=== PATIENT | female | born 1995 | race Two or more races ===

== ENCOUNTER 2016-09-20 06:47 | Emergency (ER) | payer OTHER ==
[2016-09-20] MEDS ORDERED: ONDANSETRON 4 MG ORAL DISINTEGRATING TAB (S0181) As Ordered ONE (07:09)
[2016-09-20] MEDS ORDERED: ALBUTEROL SULFATE 2.5 MG/0.5 ML INH NEB SOLN As Ordered ONE (07:56)
--- NOTE | 2016-09-20 08:20 | EDDOCDS ---
Nurse's Notes [facility] Name: She Solo Age: 20 yrs Sex: Female : 1995 Arrival Date: 09/20/2016 Time: 06:47 Bed I5 / M5 Private MD: Diagnosis: Chest pain, unspecified Presentation: 09/20 06:57 Presenting complaint: Patient states: having chest aches, nausea for 1 week. Reports kr3 last time felt like this had a seizure. Reports fell asleep with symptoms and woke this AM with symptoms. Reports did not follow up with PCP 'because they just wanted to start all kinds of meds'. Aspirin was not taken prior to arrival. Adult Sepsis Screening: The patient does not have new or worsening altered mentation. Patient's respiratory rate is less than 22. Systolic blood pressure is greater than 100. Patient has a qSOFA score of 0- Negative Sepsis Screen. Suicide/Homicide risk assessment- the patient denies having any suicidal and/or homicidal ideations and does not present with any other emotional, behavioral or mental health complaints. 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 Transition of care: patient was not received from another setting of care. 06:57 Acuity: MARIBEL Level 3 kr3 06:57 Method Of Arrival: Walkin/Carried/Asstd kr3 Triage Assessment: 06:59 General: Appears in no apparent distress, comfortable, Behavior is cooperative. kr3 General: reports nasty feeling inside . Pain: Denies pain. HIV screening NA for this visit Offered previously. EENT: Reports sneezing. Cardiovascular: Chest pain is described as Pain is 0 out of 10 on a pain scale. radiates Does not radiate. episodes are intermittent began over 1 week ago. Respiratory: Respiratory effort is even, unlabored. GI: Reports nausea. Derm: Skin is pink, warm & dry. 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 red colored inhaler - PMHx: Asthma; - PSHx: none; - Social history: Smoking status: Patient states was never smoker of tobacco. No barriers to communication noted, The patient speaks fluent Portuguese, Speaks appropriately for age. - Family history: Not pertinent. - : The pt / caregiver states he / she is not on anticoagulants. Home medication list is obtained from the patient. - Exposure Risk Screening:: None identified. Screenin:06 Screening information is obtained from the patient. Fall risk: No risks identified. kr3 Assistance ADL's: requires no assistance with activities of daily living. Abuse/DV Screen: The patient / caregiver reports he/she is: not in a situation that causes fear, pain or injury. Nutritional screening: No deficits noted. Advance Directives: Currently, there is no health care proxy. home support is adequate. Assessment: 07:17 Reassessment: Patient appears in no apparent distress at this time. Patient denies pain kr3 at this time. Neurological: Level of Consciousness is awake, alert, Gait is steady, Speech is normal. Cardiovascular: Rhythm is not on monitor. Respiratory: Respiratory effort is even, unlabored. GI: Reports nausea. Derm: Skin is pink, warm & dry. 08:09 Reassessment: Patient states feeling better. receiving breathing treatment. kr3 Vital Signs: 06:59 BP 130 / 76; Pulse 65; Resp 16; Temp 97.7(O); Pulse Ox 98% on R/A; Weight 83.91 kg (R); kr3 Height 5 ft. 10 in. (177.80 cm) (R); 08:17 BP 120 / 69; Pulse 76; Resp 16; Temp 97.6(O); Pulse Ox 99% on R/A; Pain 0/10; kr3 06:59 Body Mass Index 26.54 (83.91 kg, 177.80 cm) kr3 Vitals: 06:59 Log In Time: September 20, 2016 at 06:43. kr3 ED Course: 06:48 Patient visited by Olena Cordero, Reg. hs2 06:48 Patient moved to Waiting hs2 06:59 Triage Initiated kr3 07:03 Patient moved to I5 / M5 kr3 07:04 César Cano PA-C is PHCP. cc10 07:04 Sravan Haji MD is Attending Physician. cc10 07:04 Patient visited by César Cano PA-C. cc10 07:04 Patient visited by César Cano PA-C. cc10 07:06 The patient / caregiver is instructed regarding the plan of care and ED course. kr3 Accompanied by Friend, Patient has correct armband on for positive identification. Placed in gown. Bed in low position. Call light in reach. Side rails up X 1. Cardiac monitoring not applicable on this patient. 07:14 No IV's were initiated during this patient's visit. No procedures done that require kr3 assistance. 08:09 Patient visited by Aline Urrutia RN. kr3 08:11 Juarez Elkins [facility] is Referral Physician. cc10 Administered Medications: 07:14 Drug: Ondansetron ODT 4 mg [ondansetron 4 mg disintegrating tablet (1 tabs)] Route: PO; kr3 08:09 Follow up: Response: Nausea is decreased kr3 08:01 Drug: Albuterol 2.5 mg [albuterol sulfate 2.5 mg/0.5 mL solution for nebulization (0.5 cs15 mL)] Route: Nebulizer; Point of Care Testing: Urine : 07:14 hCG Reading: Negative; Control Reading: Positive; kr3 Ranges: RT: 08:01 Initial Med Neb Given as ordered. Respiratory: Respiratory effort is even, unlabored, cs15 Respiratory pattern is regular Breath sounds are diminished bilaterally. Order Results: There are currently no results for this order. Outcome: 07:14 No special radiology studies were completed. kr3 08:11 Discharge ordered by Provider. cc10 08:18 Discharge Assessment: patient administered narcotics - no. The following High Risk kr3 Discharge criteria are identified: None. Discharged to home ambulatory. Condition: stable. Discharge instructions given to patient, Instructed on discharge instructions, follow up and referral plans. medication usage, Demonstrated understanding of instructions, medications, Pt was receptive of discharge instructions/ teaching. Prescriptions given X 1. Property sent home with patient. 08:18 Patient left the ED. kr3 Signatures: Aline Urrutia RN RN kr3 César Cano, PA-C PA-C cc10 Dallas Bailey,RT RT cs15 Olena Cordero, Reg Reg hs2 Corrections: (The following items were deleted from the chart) 07:03 06:57 Presenting complaint: Patient states: having chest aches, nausea for 1 week. kr3 Reports last time felt like this had a seizure. Reports fell asleep with symptoms and woke this AM with symptoms kr3 MTDD
--- NOTE | 2016-09-20 08:20 | EDDOCDS ---
Physician Documentation [facility] Name: She Solo Age: 20 yrs Sex: Female : 1995 Arrival Date: 09/20/2016 Time: 06:47 Bed I5 / M5 Private MD: Disposition: 09/20/16 08:11 Discharged to Home/Self Care. Impression: Chest pain, unspecified. - Condition is Stable. - Discharge Instructions: Nonspecific Chest Pain. - Prescriptions for Naprosyn 500 mg Oral Tablet - take 1 tablet by ORAL route 2 times per day take with food; 30 tablet. - Medication Reconciliation form. - Follow up: Juarez Elkins [facility]; When: Tomorrow; Reason: Wound/Symptom Recheck, Recheck today's complaints, Worsening of conditions, Continuance of care. - Problem is an ongoing problem. - Symptoms are unchanged. Historical: - Allergies: no known allergies; - Home Meds: 1. red colored inhaler - PMHx: Asthma; - PSHx: none; - Social history: Smoking status: Patient states was never smoker of tobacco. No barriers to communication noted, The patient speaks fluent Argentine, Speaks appropriately for age. - Family history: Not pertinent. - : The pt / caregiver states he / she is not on anticoagulants. Home medication list is obtained from the patient. - Exposure Risk Screening:: None identified. 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 10 in. (177.80 cm) (R); 08:17 BP 120 / 69; Pulse 76; Resp 16; Temp 97.6(O); Pulse Ox 99% on R/A; Pain 0/10; kr3 06:59 Body Mass Index 26.54 (83.91 kg, 177.80 cm) kr3 MDM: 07:07 Albuterol 2.5 mg Nebulizer once ordered. cc10 07:07 Call Respiratory ordered. cc10 07:07 Ondansetron ODT Oral Disintegrating Tablet 4 mg PO once ordered. cc10 07:07 UCG by Nursing ordered. cc10 07:09 Call Respiratory complete. kr3 Point of Care Testing: Urine : 07:14 hCG Reading: Negative; Control Reading: Positive; kr3 Ranges: Administered Medications: 07:14 Drug: Ondansetron ODT 4 mg [ondansetron 4 mg disintegrating tablet (1 tabs)] Route: PO; kr3 08:09 Follow up: Response: Nausea is decreased kr3 08:01 Drug: Albuterol 2.5 mg [albuterol sulfate 2.5 mg/0.5 mL solution for nebulization (0.5 cs15 mL)] Route: Nebulizer; Signatures: Aline Urrutia,RN RN kr3 César Cano PA-C PA-C cc10 Dallas Bailey RT cs15 MTDD
--- NOTE | 2016-09-22 09:19 | EDDOCDS ---
Nurse's Notes [facility] Name: She Solo Age: 20 yrs Sex: Female : 1995 Arrival Date: 09/20/2016 Time: 06:47 Bed I5 / M5 Private MD: Diagnosis: Chest pain, unspecified Presentation: 09/20 06:57 Presenting complaint: Patient states: having chest aches, nausea for 1 week. Reports kr3 last time felt like this had a seizure. Reports fell asleep with symptoms and woke this AM with symptoms. Reports did not follow up with PCP 'because they just wanted to start all kinds of meds'. Aspirin was not taken prior to arrival. Adult Sepsis Screening: The patient does not have new or worsening altered mentation. Patient's respiratory rate is less than 22. Systolic blood pressure is greater than 100. Patient has a qSOFA score of 0- Negative Sepsis Screen. Suicide/Homicide risk assessment- the patient denies having any suicidal and/or homicidal ideations and does not present with any other emotional, behavioral or mental health complaints. 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 Transition of care: patient was not received from another setting of care. 06:57 Acuity: MARIBEL Level 3 kr3 06:57 Method Of Arrival: Walkin/Carried/Asstd kr3 Triage Assessment: 06:59 General: Appears in no apparent distress, comfortable, Behavior is cooperative. kr3 General: reports nasty feeling inside . Pain: Denies pain. HIV screening NA for this visit Offered previously. EENT: Reports sneezing. Cardiovascular: Chest pain is described as Pain is 0 out of 10 on a pain scale. radiates Does not radiate. episodes are intermittent began over 1 week ago. Respiratory: Respiratory effort is even, unlabored. GI: Reports nausea. Derm: Skin is pink, warm & dry. 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 red colored inhaler - PMHx: Asthma; - PSHx: none; - Social history: Smoking status: Patient states was never smoker of tobacco. No barriers to communication noted, The patient speaks fluent Upper Sorbian, Speaks appropriately for age. - Family history: Not pertinent. - : The pt / caregiver states he / she is not on anticoagulants. Home medication list is obtained from the patient. - Exposure Risk Screening:: None identified. Screenin:06 Screening information is obtained from the patient. Fall risk: No risks identified. kr3 Assistance ADL's: requires no assistance with activities of daily living. Abuse/DV Screen: The patient / caregiver reports he/she is: not in a situation that causes fear, pain or injury. Nutritional screening: No deficits noted. Advance Directives: Currently, there is no health care proxy. home support is adequate. Assessment: 07:17 Reassessment: Patient appears in no apparent distress at this time. Patient denies pain kr3 at this time. Neurological: Level of Consciousness is awake, alert, Gait is steady, Speech is normal. Cardiovascular: Rhythm is not on monitor. Respiratory: Respiratory effort is even, unlabored. GI: Reports nausea. Derm: Skin is pink, warm & dry. 08:09 Reassessment: Patient states feeling better. receiving breathing treatment. kr3 Vital Signs: 06:59 BP 130 / 76; Pulse 65; Resp 16; Temp 97.7(O); Pulse Ox 98% on R/A; Weight 83.91 kg (R); kr3 Height 5 ft. 10 in. (177.80 cm) (R); 08:17 BP 120 / 69; Pulse 76; Resp 16; Temp 97.6(O); Pulse Ox 99% on R/A; Pain 0/10; kr3 06:59 Body Mass Index 26.54 (83.91 kg, 177.80 cm) kr3 Vitals: 06:59 Log In Time: September 20, 2016 at 06:43. kr3 ED Course: 06:48 Patient visited by Olena Cordero, Reg. hs2 06:48 Patient moved to Waiting hs2 06:59 Triage Initiated kr3 07:03 Patient moved to I5 / M5 kr3 07:04 César Cano PA-C is PHCP. cc10 07:04 Sravan Haji MD is Attending Physician. cc10 07:04 Patient visited by César Cano PA-C. cc10 07:04 Patient visited by César Cano PA-C. cc10 07:06 The patient / caregiver is instructed regarding the plan of care and ED course. kr3 Accompanied by Friend, Patient has correct armband on for positive identification. Placed in gown. Bed in low position. Call light in reach. Side rails up X 1. Cardiac monitoring not applicable on this patient. 07:14 No IV's were initiated during this patient's visit. No procedures done that require kr3 assistance. 08:09 Patient visited by Aline Urrutia RN. kr3 08:11 [facility]. cc10 09:22 [facility] Payment Agreement was scanned into [employer] and attached to record. lg 13:51 T-Sheet-- Draft Copy was scanned into [employer] and attached to record. gb Administered Medications: 07:14 Drug: Ondansetron ODT 4 mg [ondansetron 4 mg disintegrating tablet (1 tabs)] Route: PO; kr3 08:09 Follow up: Response: Nausea is decreased kr3 08:01 Drug: Albuterol 2.5 mg [albuterol sulfate 2.5 mg/0.5 mL solution for nebulization (0.5 cs15 mL)] Route: Nebulizer; Point of Care Testing: Urine : 07:14 hCG Reading: Negative; Control Reading: Positive; kr3 Ranges: RT: 08:01 Initial Med Neb Given as ordered. Respiratory: Respiratory effort is even, unlabored, cs15 Respiratory pattern is regular Breath sounds are diminished bilaterally. Order Results: There are currently no results for this order. Outcome: 07:14 No special radiology studies were completed. kr3 08:11 Discharge ordered by Provider. cc10 08:18 Discharge Assessment: patient administered narcotics - no. The following High Risk kr3 Discharge criteria are identified: None. Discharged to home ambulatory. Condition: stable. Discharge instructions given to patient, Instructed on discharge instructions, follow up and referral plans. medication usage, Demonstrated understanding of instructions, medications, Pt was receptive of discharge instructions/ teaching. Prescriptions given X 1. Property sent home with patient. 08:18 Patient left the ED. kr3 Signatures: nEid Blair, Reg Reg gb Basil Jackson, Reg Reg lg Aline Urrutia RN RN kr3 César Cano, PA-C PA-C cc10 Dallas Bailey,RT RT cs15 Olena Cordero, Reg Reg hs2 Corrections: (The following items were deleted from the chart) 07:03 06:57 Presenting complaint: Patient states: having chest aches, nausea for 1 week. kr3 Reports last time felt like this had a seizure. Reports fell asleep with symptoms and woke this AM with symptoms kr3 Chart Complete MTDD
--- NOTE | 2016-09-22 09:19 | EDDOCDS ---
Physician Documentation [facility] Name: She Solo Age: 20 yrs Sex: Female : 1995 Arrival Date: 09/20/2016 Time: 06:47 Bed I5 / M5 Private MD: Disposition: 09/20/16 08:11 Discharged to Home/Self Care. Impression: Chest pain, unspecified. - Condition is Stable. - Discharge Instructions: Nonspecific Chest Pain. - Prescriptions for Naprosyn 500 mg Oral Tablet - take 1 tablet by ORAL route 2 times per day take with food; 30 tablet. - Medication Reconciliation form. - Follow up: Juarez Elkins [facility]; When: Tomorrow; Reason: Wound/Symptom Recheck, Recheck today's complaints, Worsening of conditions, Continuance of care. - Problem is an ongoing problem. - Symptoms are unchanged. Historical: - Allergies: no known allergies; - Home Meds: 1. red colored inhaler - PMHx: Asthma; - PSHx: none; - Social history: Smoking status: Patient states was never smoker of tobacco. No barriers to communication noted, The patient speaks fluent Cambodian, Speaks appropriately for age. - Family history: Not pertinent. - : The pt / caregiver states he / she is not on anticoagulants. Home medication list is obtained from the patient. - Exposure Risk Screening:: None identified. 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 10 in. (177.80 cm) (R); 08:17 BP 120 / 69; Pulse 76; Resp 16; Temp 97.6(O); Pulse Ox 99% on R/A; Pain 0/10; kr3 06:59 Body Mass Index 26.54 (83.91 kg, 177.80 cm) kr3 MDM: 07:07 Albuterol 2.5 mg Nebulizer once ordered. cc10 07:07 Call Respiratory ordered. cc10 07:07 Ondansetron ODT Oral Disintegrating Tablet 4 mg PO once ordered. cc10 07:07 UCG by Nursing ordered. cc10 07:09 Call Respiratory complete. kr3 09:22 [facility] Payment Agreement was scanned into [employer] and attached to record. lg 13:51 T-Sheet-- Draft Copy was scanned into [employer] and attached to record. gb Point of Care Testing: Urine : 07:14 hCG Reading: Negative; Control Reading: Positive; kr3 Ranges: Administered Medications: 07:14 Drug: Ondansetron ODT 4 mg [ondansetron 4 mg disintegrating tablet (1 tabs)] Route: PO; kr3 08:09 Follow up: Response: Nausea is decreased kr3 08:01 Drug: Albuterol 2.5 mg [albuterol sulfate 2.5 mg/0.5 mL solution for nebulization (0.5 cs15 mL)] Route: Nebulizer; Signatures: Enid Blair, Reg Reg gb Basil Jackson, Reg Reg lg Aline Urrutia,GUSTAVO RN kr3 César Cano, PAGaylaC PA-C cc10 Dallas Bailey RT cs15 The chart was reviewed and I authenticate all verbal orders and agree with the evaluation and treatment provided.Attachments: 09:22 [facility] Payment Agreement lg 13:51 T-Sheet-- Draft Copy gb Chart Complete MTDD
--- NOTE | 2016-09-22 09:19 | EDDOCDS ---
[facility]ation [facility] Name: She Solo Age: 20 yrs Sex: Female : 1995 Arrival Date: 09/20/2016 Time: 06:47 Bed I5 / M5 Private MD: Disposition: 09/20/16 08:11 Discharged to Home/Self Care. Impression: Chest pain, unspecified. - Condition is Stable. - Discharge Instructions: Nonspecific Chest Pain. - Prescriptions for Naprosyn 500 mg Oral Tablet - take 1 tablet by ORAL route 2 times per day take with food; 30 tablet. - Medication Reconciliation form. - Follow up: Juarez Elkins [facility]; When: Tomorrow; Reason: Wound/Symptom Recheck, Recheck today's complaints, Worsening of conditions, Continuance of care. - Problem is an ongoing problem. - Symptoms are unchanged. Historical: - Allergies: no known allergies; - Home Meds: 1. red colored inhaler - PMHx: Asthma; - PSHx: none; - Social history: Smoking status: Patient states was never smoker of tobacco. No barriers to communication noted, The patient speaks fluent Turkish, Speaks appropriately for age. - Family history: Not pertinent. - : The pt / caregiver states he / she is not on anticoagulants. Home medication list is obtained from the patient. - Exposure Risk Screening:: None identified. 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 10 in. (177.80 cm) (R); 08:17 BP 120 / 69; Pulse 76; Resp 16; Temp 97.6(O); Pulse Ox 99% on R/A; Pain 0/10; kr3 06:59 Body Mass Index 26.54 (83.91 kg, 177.80 cm) kr3 MDM: 07:07 Albuterol 2.5 mg Nebulizer once ordered. cc10 07:07 Call Respiratory ordered. cc10 07:07 Ondansetron ODT Oral Disintegrating Tablet 4 mg PO once ordered. cc10 07:07 UCG by Nursing ordered. cc10 07:09 Call Respiratory complete. kr3 09:22 [facility] Payment Agreement was scanned into [employer] and attached to record. lg 13:51 T-Sheet-- Draft Copy was scanned into [employer] and attached to record. gb Point of Care Testing: Urine : 07:14 hCG Reading: Negative; Control Reading: Positive; kr3 Ranges: Administered Medications: 07:14 Drug: Ondansetron ODT 4 mg [ondansetron 4 mg disintegrating tablet (1 tabs)] Route: PO; kr3 08:09 Follow up: Response: Nausea is decreased kr3 08:01 Drug: Albuterol 2.5 mg [albuterol sulfate 2.5 mg/0.5 mL solution for nebulization (0.5 cs15 mL)] Route: Nebulizer; Signatures: Enid Blair, Reg Reg gb Basil Jackson, Reg Reg lg Aline Urrutia,GUSTAVO RN kr3 César Cano, PAGaylaC PA-C cc10 Dallas Bailey RT cs15 The chart was reviewed and I authenticate all verbal orders and agree with the evaluation and treatment provided.Attachments: 09:22 [facility] Payment Agreement lg 13:51 T-Sheet-- Draft Copy gb Chart Complete MTDD
== END 2016-09-20 08:18 | disposition home or self-care (01) ==
LOC: M ED 06:47
DX: R07.89 Other chest pain (principal); J45.909 Unspecified asthma, uncomplicated; R11.0 Nausea

== ENCOUNTER 2016-11-20 17:50 | Emergency (ER) | payer OTHER ==
[~2016-11-20] VITALS: Ht 177.8 cm; Wt 88.0 kg
[2016-11-20 18:37] LABS: MEAN CORPUSCULAR HEMOGLOBIN 28.4 pg (27.0-33.0); MEAN CORPUSCULAR HGB CONC 33.3 g/dl (32.0-36.5); MEAN CORPUSCULAR VOLUME 85.2 fl (80.0-96.0); WHITE BLOOD COUNT 6.5 K/mm3 (4.0-10.0)
[2016-11-20 18:56] LABS: CONTROL LINE HCG INT CTR LINE PRESENT
[2016-11-20 19:02] LABS: METHADONE URINE NEGATIVE (NEGATIVE)
[2016-11-20 19:11] LABS: ALBUMIN 4.1 GM/DL (3.2-5.2); ALBUMIN/GLOBULIN RATIO 1.28 (1.00-1.93); ALKALINE PHOSPHATASE 81 U/L (45-117); ALT/SGPT 20 U/L (12-78); ANION GAP 10 MEQ/L (8-16); AST/SGOT 21 U/L (15-37); BILIRUBIN,DIRECT < 0.1 MG/DL (0.0-0.2); BILIRUBIN,TOTAL 0.3 MG/DL (0.2-1.0); BLOOD UREA NITROGEN 11 MG/DL (7-18); CALCIUM LEVEL 8.4 MG/DL (8.5-10.1); CARBON DIOXIDE LEVEL 24 MEQ/L (21-32); CHLORIDE LEVEL 107 MEQ/L (98-107); CREATININE FOR GFR 0.77 MG/DL (0.55-1.02); GLUCOSE, FASTING 112 MG/DL (70-105); POTASSIUM SERUM 3.3 MEQ/L (3.5-5.1); SODIUM LEVEL 141 MEQ/L (136-145); TOTAL PROTEIN 7.3 GM/DL (6.4-8.2)
[2016-11-20] MEDS ORDERED: CITA20TA4 PO (19:19)
[2016-11-20 19:58] VITALS: BP 135/86
== END 2016-11-20 20:00 | disposition home or self-care (01) ==
LOC: M ED 19:01
DX: F32.9 Major depressive disorder, single episode, unspecified (principal); Z03.6 Encounter for observation for suspected toxic effect from ingested substance ruled out; Z79.899 Other long term (current) drug therapy
CPT/HCPCS: 36415; 80048; 80076; 80306; 84443; 84703; 85027; 99285; G0480

== ENCOUNTER 2017-03-01 08:50 | Emergency (ER) | payer OTHER ==
[~2017-03-01] VITALS: Ht 175.3 cm; Wt 93.0 kg
[~2017-03-01 08:50] MED LIST: CITA20TA4 PO
[2017-03-01 08:51] VITALS: BP 138/87
[2017-03-01] MEDS ORDERED: ZONI100C2 PO (09:07)
[2017-03-01] MEDS ORDERED: ONDANSETRON 4 MG ORAL DISINTEGRATING TAB (S0181) PO ONE (10:00)
[2017-03-01] MEDS ORDERED: ZOFR4TAB3 PO (10:06)
== END 2017-03-01 10:15 | disposition home or self-care (01) ==
LOC: M ED 09:49
DX: T43.225A Adverse effect of selective serotonin reuptake inhibitors, initial encounter (principal); R19.7 Diarrhea, unspecified; X58.XXXA Exposure to other specified factors, initial encounter; Y92.9 Unspecified place or not applicable; Y93.9 Activity, unspecified; Y99.9 Unspecified external cause status; F41.9 Anxiety disorder, unspecified; F44.5 Conversion disorder with seizures or convulsions; Z79.899 Other long term (current) drug therapy

== ENCOUNTER 2017-06-09 21:22 | Emergency (ER) | payer OTHER ==
[~2017-06-09] VITALS: Ht 175.3 cm; Wt 91.8 kg
[~2017-06-09 21:22] MED LIST changes: +MICONAZOLE-7 VAGINAL 2% CREAM 47.7 GM PV SCH; +ZOFR4TAB3 PO; +ZONI100C2 PO
[2017-06-09] MEDS ORDERED: PROAAER10 (21:43)
[2017-06-09 23:18] LABS: CONTROL LINE UCG INT CTR LINE PRESENT
[2017-06-09 23:27] LABS: YEAST LIKE CELL URINE AUTO SMALL
[2017-06-09] MEDS ORDERED: DIFL150T PO (23:45)
[2017-06-09] MEDS ORDERED: MICO1SUP2 PV (23:48)
[2017-06-09 23:51] VITALS: BP 146/76
[2017-06-10] MEDS ORDERED: MACR100C43 PO (01:25)
== END 2017-06-10 00:10 | disposition home or self-care (01) ==
LOC: M ED 21:22
DX: N76.0 Acute vaginitis (principal); Z87.42 Personal history of other diseases of the female genital tract

== ENCOUNTER → 2017-07-05 | Outpatient (REF) | payer OTHER ==
[~2017-07-05] MED LIST changes: +DIFL150T PO; +MACR100C43 PO; +MICO1SUP2 PV; -MICONAZOLE-7 VAGINAL 2% CREAM 47.7 GM PV SCH; +PROAAER10
[2017-07-05 13:40] LABS: BASO # 0.1 10^3/uL (0.0-0.2); EOS # 0.5 10^3/uL (0.0-0.50); IMMATURE GRANULOCYTE % 0.2 % (0-0); LYMPH % 32.8 % (24.0-44.0); MEAN CORPUSCULAR HEMOGLOBIN 27.5 pg (27.0-33.0); MEAN CORPUSCULAR HGB CONC 31.8 g/dl (32.0-36.5); MEAN CORPUSCULAR VOLUME 86.6 fl (80.0-96.0); MONO # 0.4 10^3/uL (0.0-0.8); MONO % 7.1 % (0.0-5.0); NEUTROPHILS # 3.1 10^3/uL (1.8-7.7); NEUTROPHILS % 50.9 % (36.0-66.0); PLATELET COUNT, AUTOMATED 274 10^3/uL (150-450); RED CELL DISTRIBUTION WIDTH 13.5 % (11.5-14.5); WHITE BLOOD COUNT 6.2 10^3/uL (4.0-10.0)
[2017-07-05 13:43] LABS: ALBUMIN 3.8 GM/DL (3.2-5.2); ALBUMIN/GLOBULIN RATIO 1.31 (1.00-1.93); ALKALINE PHOSPHATASE 87 U/L (45-117); ALT/SGPT 24 U/L (12-78); ANION GAP 8 MEQ/L (8-16); AST/SGOT 13 U/L (15-37); BILIRUBIN,TOTAL 0.3 MG/DL (0.2-1.0); BLOOD UREA NITROGEN 9 MG/DL (7-18); CALCIUM LEVEL 8.9 MG/DL (8.5-10.1); CARBON DIOXIDE LEVEL 25 MEQ/L (21-32); CHLORIDE LEVEL 108 MEQ/L (98-107); CREATININE FOR GFR 0.67 MG/DL (0.55-1.02); GLUCOSE, FASTING 85 MG/DL (70-105); POTASSIUM SERUM 3.7 MEQ/L (3.5-5.1); SODIUM LEVEL 141 MEQ/L (136-145); TOTAL PROTEIN 6.7 GM/DL (6.4-8.2)
== END ==
LOC: M LABNEURO 09:27
PROVIDERS: ATTEND Psychiatry & Neurology Neurology
DX: R56.9 Unspecified convulsions (principal)

== ENCOUNTER → 2017-09-13 | Outpatient (REF) | payer OTHER ==
[2017-09-13 13:17] LABS: ALBUMIN/GLOBULIN RATIO 1.18 (1.00-1.93); ALKALINE PHOSPHATASE 90 U/L (45-117); ALT/SGPT 22 U/L (12-78); ANION GAP 8 MEQ/L (8-16); AST/SGOT 17 U/L (7-37); BILIRUBIN,TOTAL 0.4 MG/DL (0.2-1.0); BLOOD UREA NITROGEN 14 MG/DL (7-18); CALCIUM LEVEL 8.9 MG/DL (8.5-10.1); CARBON DIOXIDE LEVEL 24 MEQ/L (21-32); CHLORIDE LEVEL 107 MEQ/L (98-107); GLUCOSE, FASTING 107 MG/DL (70-105); POTASSIUM SERUM 3.7 MEQ/L (3.5-5.1); SODIUM LEVEL 139 MEQ/L (136-145); TOTAL PROTEIN 7.4 GM/DL (6.4-8.2)
[2017-09-13 13:21] LABS: BASO # 0.1 10^3/uL (0.0-0.2); BASO % 1.3 % (0.0-1.0); EOS # 0.2 10^3/uL (0.0-0.50); EOS % 5.4 % (0.0-3.0); HEMATOCRIT 41.5 % (36.0-47.0); HEMOGLOBIN 13.2 g/dl (12.0-16.0); IMMATURE GRANULOCYTE % 0.3 % (0-0); LYMPH # 1.5 10^3/uL (1.5-6.5); LYMPH % 37.2 % (24.0-44.0); MEAN CORPUSCULAR HEMOGLOBIN 26.8 pg (27.0-33.0); MEAN CORPUSCULAR HGB CONC 31.8 g/dl (32.0-36.5); MEAN CORPUSCULAR VOLUME 84.3 fl (80.0-96.0); MONO # 0.4 10^3/uL (0.0-0.8); MONO % 9.7 % (0.0-5.0); NEUTROPHILS # 1.8 10^3/uL (1.8-7.7); NEUTROPHILS % 46.1 % (36.0-66.0); PLATELET COUNT, AUTOMATED 329 10^3/uL (150-450); RED BLOOD COUNT 4.92 10^6/uL (4.00-5.40); RED CELL DISTRIBUTION WIDTH 13.1 % (11.5-14.5); WHITE BLOOD COUNT 3.9 10^3/uL (4.0-10.0)
[2017-09-17 08:10] LABS: ZONISAMIDE LEVEL 6.6 ug/mL (10.0-40.0)
== END ==
LOC: M LABNEURO 08:57
DX: G40.909 Epilepsy, unspecified, not intractable, without status epilepticus (principal)